=== PATIENT | female | born 1985 | race Caucasian/White ===

== ENCOUNTER 2017-02-01 11:05 | Outpatient (CLI) | payer OTHER ==
[2017-02-10] MEDS ORDERED: PRENATAL VIT1 TAB PO (09:42)
[2017-02-10] MEDS ORDERED: COLACE-DPS100 MG PO (09:43)
[2017-02-10] MEDS ORDERED: TUMS DPS500 MG PO (09:43)
[2017-02-10] MEDS ORDERED: MOTRIN-DPS800 MG PO (09:43)
== END 2017-02-01 14:10 | disposition home or self-care (01) ==
LOC: BC 11:05 → 2LDRP 11:05 → BC 14:10
DX: O47.1 False labor at or after 37 completed weeks of gestation (principal); Z3A.37 37 weeks gestation of pregnancy

== ENCOUNTER 2017-02-08 01:46 | Inpatient (IN) | payer OTHER ==
[~2017-02-08] VITALS: Ht 170.2 cm; Wt 77.1 kg
--- NOTE | ~2017-02-08 | FD ---
ADMIT: 02/08/2017 RM/LOC: 228 [facility] MR#: [id number] [address] SANDEEP QUINTANILLA [address] [address] Final Diagnosis SEX: F AGE: 32 : 1985 ADMISSION DATE: 02/08/2017 DISCHARGE DATE: 02/09/2017 FINAL DIAGNOSIS: 1. Status post spontaneous vaginal delivery. 2. Anemia during . 3. History of gestational hypertension in previous . PROCEDURE: Spontaneous vaginal delivery. Nikki Siegel MD/ pat JOB #: [id number] CC: Nikki Siegel MD, Attending Physician Nikki Siegel MD, Family Physician
--- NOTE | ~2017-02-08 | HP ---
ADMIT: 02/08/2017 RM/LOC: 228 [facility] MR#: [id number] [facility] [address] [place] [id number] SANDEEP QUINTANILLA [address] [place] [address] History and Physical SEX: F AGE: 32 : 1985 DATE OF SERVICE: CHIEF COMPLAINT: Rupture of membranes. HISTORY OF PRESENT ILLNESS: The patient is a 32-year-old, 3, para 1-0- 1-1, with an intrauterine at 39-0/7th weeks by a 7-week ultrasound, who presents to Labor and Delivery with spontaneous rupture of membranes. The patient was checked by the nurses and found to be grossly ruptured and 4.5 cm dilated. She was therefore admitted for active labor. PAST MEDICAL HISTORY: 1. Anemia during . 2. History of gestational hypertension in previous . PAST SURGICAL HISTORY: 1. Hysteroscopy with polypectomy in 2012. 2. Tonsillectomy. FAMILY HISTORY: Mother with brain aneurysm in 2014, maternal grandmother with diabetes. Paternal side of family with heart disease. Maternal side of family with hypertension. SOCIAL HISTORY: The patient denies alcohol, tobacco, or illicit drug use. She is to Jef and is a [id number] mom. MEDICATIONS: 1. vitamins 1 tablet p.o. daily. 2. Ferrous gluconate 1 tablet p.o. daily. 3. Tums 500 mg one to two p.o. p.r.n. 4. Extra-Strength Tylenol 1 tablet p.o. p.r.n. ALLERGIES: NO KNOWN MEDICAL ALLERGIES. REVIEW OF SYSTEMS: Significant for uterine contractions and rupture of membranes as described in history of present illness. The patient denies vaginal bleeding or decreased movement. OBSTETRICAL LABORATORY DATA: Blood type A positive. Antibody screen negative. RPR nonreactive. Rubella immune. HIV negative. Gonorrhea and Chlamydia negative. Hepatitis B surface antigen negative. Pap smear negative for intraepithelial lesion or malignancy, high-risk HPV not detected. Quad screen negative. Diabetic screen 86. Group B Streptococcus positive. PHYSICAL EXAMINATION: GENERAL: Well-developed, well-nourished white female, alert and oriented x3, in no acute distress. VITAL SIGNS: Blood pressure 133/88, pulse 91, oxygen saturation 99% on room air. HEENT: Head is normocephalic, atraumatic. Pupils are equal and round. Extraocular muscles are intact. ADMIT: 02/08/2017 RM/LOC: 228 [facility] MR#: [id number] [address] [place] [address] History and Physical SEX: F AGE: 32 : 1985 NECK: Supple. Trachea midline. Thyroid not palpable. HEART: Regular rate and rhythm. LUNGS: Clear to auscultation bilaterally. ABDOMEN: Soft, nontender, gravid. EXTREMITIES: No clubbing, cyanosis, or edema. NEUROLOGIC: Cranial nerves II through XII grossly intact. 2+ deep tendon reflexes noted. PELVIC: Sterile vaginal examination by the nurse on admission reveals the cervix to be 4.5 cm dilated, 80% effaced, -1 station. heart tones are in the 120s with 15 x 15 accelerations, moderate long-term variability, and no decelerations. Uterine contractions are noted every 3 minutes on the monitor. ASSESSMENT AND PLAN: 1. This is a 32-year-old, 3, para 1-0-0-1, with an intrauterine at 39-0/7th weeks by a 7-week ultrasound, who presents to Labor and Delivery with spontaneous rupture of membranes. 2. Group B Streptococcus positive. Penicillin will be provided for prophylaxis. 3. Fetus is vertex and overall reassuring. Nikki Siegel MD/ lorrie JOB #: [id number] CC: Nikki Siegel, Attending Physician Nikki Siegel, Family Physician
--- NOTE | 2017-02-08 13:00 | OR ---
ADMIT: 02/08/2017 RM/LOC: 228 [facility] MR#: [id number] [address] [address] SANDEEP QUINTANILLA [address] [place] [address] Operative/Delivery Room Report SEX: F AGE: 32 : 1985 SURGERY DATE: 02/08/2017 SURGEON: Nikki Siegel MD The patient delivered a viable male by spontaneous vaginal delivery at 0540 hours. A nuchal cord x1 was reduced. The infant was placed on the mother's abdomen, and the cord was doubly clamped and cut. The infant was handed off to the awaiting nurse. Cord blood was sent. The infant's weight was 3250 g. scores were 7 and 9. The placenta then delivered spontaneously intact with a three-vessel cord. Twenty units of Pitocin were infused with intravenous fluids. An examination of the perineum revealed a second-degree laceration, which was repaired with 3-0 Vicryl in the usual fashion with excellent hemostasis. Estimated blood loss for the entire procedure was 300 mL. The patient and are in her room in stable condition. Nikki Siegel MD/ lorrie JOB #: [id number] CC: Nikki Siegel, Attending Physician Nikki Siegel, Family Physician
[2017-02-10] MEDS ORDERED: PRENATAL VIT1 TAB PO (09:42)
[2017-02-10] MEDS ORDERED: TUMS DPS500 MG PO (09:43)
[2017-02-10] MEDS ORDERED: MOTRIN-DPS800 MG PO (09:43)
[2017-02-10] MEDS ORDERED: COLACE-DPS100 MG PO (09:43)
== END 2017-02-09 11:10 | disposition home or self-care (01) | DRG 775 ==
LOC: 2LDRP 01:46 → BC 01:46 → 2LDRP 01:47 → BC 02:14 → 2LDRP 02-09 11:10 → BC 02-15 14:37
PROVIDERS: ADMIT Obstetrics & Gynecology
PROC: 10E0XZZ Delivery of Products of Conception, External Approach (ICD-10-PCS; principal; 2017-02-08)
PROC: 0KQM0ZZ Repair Perineum Muscle, Open Approach (ICD-10-PCS; principal; 2017-02-08)
DX: O99.824 Streptococcus B carrier state complicating childbirth (principal); D64.9 Anemia, unspecified; O99.02 Anemia complicating childbirth; O69.81X0 Labor and delivery complicated by cord around neck, without compression, not applicable or unspecified; O70.1 Second degree perineal laceration during delivery; Z3A.39 39 weeks gestation of pregnancy; Z37.0 Single live birth